=== PATIENT | female | born 1945 | race Caucasian/White ===

== ENCOUNTER 2019-09-10 18:13 | Emergency (ER) | payer MEDICARE, SELFPAY ==
--- NOTE | ~2019-09-10 | XR_ITS ---
XR ankle LT min 3V 09/10/2019 19:04 INDICATION: Left ankle pain after twisting injury PROCEDURE: 4 views left ankle COMPARISON: No prior studies for comparison. FINDINGS: Fracture, dislocation or subluxation is not identified. Ankle mortise intact. Moderate diff use soft tissue swelling. There is a degenerative calcaneal enthesophyte. Mild osteoarthritis of the midfoot. No foreign bodies are identified. IMPRESSION: 1: NO ACUTE BONE OR JOINT ABNORMALITY IDENTIFIED. Reviewed, dictated and finalized at location A.
[2019-09-10 18:20] VITALS: BP 102/58; PULSE 62; RESP 20; TEMP 36.1; O2SAT 95
--- NOTE | 2019-09-10 19:33 | ED.LOWEXIN ---
HPI - Extremity Injury (Lower) General Chief Complaint: Extremity Injury, Lower Stated Complaint: ankle pain Source: patient Mode of arrival: wheelchair Limitations: no limitations History of Present Illness HPI Narrative: [place] ankle just prior to arrival in [facility]. Pt is traveling through this area. Her ortho doc and PCP are from [place]. She has severe COPD, has been on prolonged prednisone dosing. Related Data Home Medications Medication Instructions Recorded Confirmed aspirin [Adult Low Dose Aspirin] 81 mg PO DAILY 09/10/19 09/10/19 benzonatate 100 mg PO BID 09/10/19 09/10/19 budesonide-formoterol [Symbicort] 2 puff INHALATION Q12H 09/10/19 09/10/19 llbpaty-okyulqdjr-wtgy 1 tablet PO DAILY 09/10/19 09/10/19 dextromethorphan-guaifenesin 1 tablet PO Q12H 09/10/19 09/10/19 [Mucinex DM] esomeprazole magnesium 40 mg PO DAILY 09/10/19 09/10/19 fluticasone propionate 1 spray INTRANASAL DAILY 09/10/19 09/10/19 furosemide 20 mg PO DAILY 09/10/19 09/10/19 ipratropium-albuterol 3 ml INHALATION Q6H PRN 09/10/19 09/10/19 levothyroxine 137 mcg PO DAILY 09/10/19 09/10/19 metformin 1,000 mg PO DAILY 09/10/19 09/10/19 montelukast 10 mg PO DAILY 09/10/19 09/10/19 multivitamin 1 tablet PO DAILY 09/10/19 09/10/19 omeprazole 20 mg PO DAILY 09/10/19 09/10/19 paroxetine HCl 10 mg PO QAM 09/10/19 09/10/19 pioglitazone 45 mg PO DAILY 09/10/19 09/10/19 pravastatin 20 mg PO DAILY 09/10/19 09/10/19 prednisone 15 mg PO DAILY 09/10/19 09/10/19 sildenafil (pulm.hypertension) 5 mg PO DIRECTED 09/10/19 09/10/19 umeclidinium [Incruse Ellipta] 1 inh INHALATION DAILY 09/10/19 09/10/19 vitamin B complex-folic acid [B 1 tablet PO DAILY 09/10/19 09/10/19 Complex 1 (with folic acid)] Allergies Allergy/AdvReac Type Severity Reaction Status Date / Time Penicillins Allergy Unknown Verified 09/10/19 18:49 Sulfa (Sulfonamide Allergy Unknown Verified 09/10/19 18:49 Antibiotics) Review of Systems Constitutional: Constitutional: Denies chills and Denies fever(s) Respiratory: Respiratory: Denies cough and Denies dyspnea Comments: COPD is stable [facility] Past Medical History Medical History (Updated 09/10/19 @ 21:19 by Saul Machado MD) COPD (chronic obstructive pulmonary disease) Diabetes 1.5, managed as type 2 Hypothyroidism Surgical History Surgical History (Updated 09/10/19 @ 21:20 by Saul Machado MD) H/O: hysterectomy History of appendectomy History of cholecystectomy Exam Narrative: Exam Narrative: Brought in by wheelchair. Increased pain in left ankle with any movement. Const: Orientation/consciousness: patient oriented x3 Neuro: General: patient oriented x3 Other: neurovascular of left foot is intact. Extrem: Other: Left ankle is tender with early, fluctuant swelling of medial/anterior/lateral ankle; no ecchymosis. Distal ~ 8 cm of tib/fib is tender. No proximal fib. tenderness. No metatarsal or navicular tenderness. Pain with ankle flexion and extension (which is limited). Knee is not swollen. No pain or limitation of ROM. Course Course Emergency Course: Discussed negative X ray with patient. She had been given #1 [place] 5/325 about on hour before d.c. which was minimally effective. Rx. given for [place] ??#1 every 4 hours. Instructions on ankle care given. Advised patient to use crutches, electric scooter, brace, ice, and return to [place] to be followed there. Vital Signs Vital signs: Vital Signs Temperature 36.1 C L 09/10/19 18:20 Pulse Rate 62 09/10/19 18:20 Respiratory Rate 20 09/10/19 18:20 Blood Pressure 102/58 L 09/10/19 18:20 Pulse Oximetry 95 09/10/19 18:20 Temperature 36.1 C L 09/10/19 18:20 Pulse Rate 62 09/10/19 18:20 Respiratory Rate 20 09/10/19 19:55 Blood Pressure 102/58 L 09/10/19 18:20 Pulse Oximetry 95 09/10/19 19:55 MDM - Extremity Injury (Lower) MDM Narrative Medical decision making narrative: No fracture. Ankl
[2019-09-10 19:55] VITALS: RESP 20; O2SAT 95
== END 2019-09-10 19:55 | disposition home or self-care (01) ==
PROVIDERS: Emergency Provider Family Medicine
DX: S93.402A Sprain of unspecified ligament of left ankle, initial encounter (principal); W18.40XA Slipping, tripping and stumbling without falling, unspecified, initial encounter
CPT/HCPCS: 73610; 99283; A9270; L4350